=== PATIENT | male | born 1980 | race Hispanic/Latino ===

== ENCOUNTER 2019-08-18 00:33 | Inpatient (IN) | payer OTHER ==
[2019-08-18] MEDS ORDERED: ALBUTEROL INHALER 90MCG/INH IH ONE (01:03)
[2019-08-18] MEDS ORDERED: CEFTRIAXONE SODIUM 1 GM ONE ×2 (02:46→08:55)
[2019-08-18] MEDS ORDERED: METHYLPREDNISOLONE SOD SUCC 125MG/2ML VIAL ONE (02:46)
[2019-08-18] MEDS ORDERED: AZITHROMYCIN 250 MG TABLET PO ONE (02:47)
[2019-08-18 03:21] LABS: BASOPHILS % (AUTO) 0.4 % (0.0-5.0); EOSINOPHILS % (AUTO) 4.1 % (0.0-8.0); HEMATOCRIT 41.8 % (42-54); LYMPHOCYTES % (AUTO) 20.2 % (21.0-51.0); MEAN CORPUSCULAR HEMOGLOBIN 29.9 pg (27.0-33.0); MEAN CORPUSCULAR HGB CONC 33.5 g/dL (32.0-36.0); MEAN CORPUSCULAR VOLUME 89.1 fL (79-99); NEUTROPHILS % (AUTO) 67.8 % (40.0-77.0); PLATELET COUNT (AUTO) 268 K/uL (130-400); RED BLOOD CELL COUNT(AUTO) 4.69 MIL/uL (4.50-6.20); RED CELL DISTRIBUTION WIDTH 13.1 % (11.0-15.5); WHITE BLOOD COUNT (AUTO) 14.1 K/uL (4.8-10.8)
[2019-08-18 03:28] LABS: RAPID GROUP A STREP NEGATIVE (NEGATIVE)
[2019-08-18 03:31] LABS: CREATININE 0.8 mg/dL (0.5-1.5)
[2019-08-18 03:34] LABS: ABG BASE EXCESS 0.5 mmol/L (-2.0-3.0); ABG HCO3 25.2 mmol/L (21.0-28.0); ABG OXYGEN SATURATION 97.5 % (95.0-99.0); ABG PCO2 41 mmHg (35-48)
[2019-08-18 03:35] LABS: ALBUMIN 3.8 g/dL (3.5-5.0); BILIRUBIN,TOTAL 0.5 mg/dL (0.2-1.0); TOTAL PROTEIN, SERUM 7.5 g/dL (6.0-8.3)
[2019-08-18] MEDS ORDERED: DOXYCYCLINE 100MG+NS 250ML IV SCH (05:15)
[2019-08-18] MEDS ORDERED: CEFTRIAXONE SODIUM 1 GM IVP SCH (05:15)
[2019-08-18] MEDS ORDERED: LACTULOSE 20 GM/30 ML UDCUP PO PRN (05:15)
[2019-08-18] MEDS ORDERED: ERGOCALCIFEROL (VITAMIN D2) 50,000 UNIT CAPSULE PO ONE (05:15)
[2019-08-18] MEDS ORDERED: ACETAMINOPHEN 325 MG TAB PO PRN ×2 (05:15)
[2019-08-18] MEDS ORDERED: ONDANSETRON HCL 4 MG/2 ML VIAL IV PRN (05:15)
[2019-08-18] MEDS ORDERED: HYDRALAZINE HCL 20 MG/ML VIAL IV PRN (05:15)
[2019-08-18] MEDS ORDERED: INSULIN HUMULIN R 100 UNIT/ML 3ML SQ SCH (07:30)
[2019-08-18 08:43] LABS: INR 0.91 (0.85-1.15); PARTIAL THROMBOPLASTIN TIME 30.1 SEC (26.3-35.5); PROTHROMBIN TIME 9.9 SEC (9.6-11.6)
[2019-08-18 08:44] LABS: CRP QUANTITATIVE 15.5 mg/L (0.00-9.0)
[2019-08-18] MEDS ORDERED: DOXYCYCLINE 100MG+NS 250ML 250 ML IV ONE (08:54)
[2019-08-18] MEDS ORDERED: METHYLPREDNISOLONE SOD SUCC 40MG/ML 1ML ONE ×3 (08:54→20:16)
[2019-08-18] MEDS ORDERED: ZINC SULFATE 220 CAPSULE ONE (08:55)
[2019-08-18] MEDS ORDERED: ASCORBIC ACID 500 MG TAB ONE (08:55)
[2019-08-18] MEDS ORDERED: ENOXAPARIN SODIUM 40 MG/0.4 ML SYRINGE SQ ONE (08:55)
[2019-08-18] MEDS ORDERED: ZINC SULFATE 220 CAPSULE PO SCH (09:00)
[2019-08-18] MEDS ORDERED: ASCORBIC ACID 500 MG TAB PO SCH (09:00)
[2019-08-18] MEDS ORDERED: METHYLPREDNISOLONE SOD SUCC 40MG/ML 1ML IVP SCH (09:00)
[2019-08-18] MEDS ORDERED: ENOXAPARIN SODIUM 40 MG/0.4 ML SYRINGE SQ SCH (09:00)
--- NOTE | 2019-08-18 15:59 | NUR ---
CHART REVIEWED, [facility] UPLOADED, NO CONTACT NUMBERS ON FACE SHEET. UNABLE TO CONTACT PATIENT VIA PHONE NOTED PATIENT- INCARCERATED, ALEXEY CORNEJO LAST WEEK, CONTINUED PROBLEMS THIS WEEK, FRANCOIS FRENCH, RE-TESTED CALL TO [facility] PLAN OF CARE Addendum: 08/18/19 at 1602 by MEGAN BANG RN CM Amended: Links added.
[2019-08-18] MEDS ORDERED: INSULIN HUMULIN R 100 UNIT/ML 3ML ONE (20:18)
[2019-08-19] MEDS ORDERED: METHYLPREDNISOLONE SOD SUCC 40MG/ML 1ML ONE ×2 (07:33→14:14)
[2019-08-19] MEDS ORDERED: DOXYCYCLINE HYCLATE 100 MG TABLET PO ONE (07:33)
[2019-08-19] MEDS ORDERED: ASCORBIC ACID 500 MG TAB ONE (07:34)
[2019-08-19] MEDS ORDERED: ZINC SULFATE 220 CAPSULE ONE (07:34)
[2019-08-19] MEDS ORDERED: ENOXAPARIN SODIUM 40 MG/0.4 ML SYRINGE SQ ONE (07:34)
[2019-08-19 08:03] LABS: BASOPHILS % (AUTO) 0.1 % (0.0-5.0); HEMATOCRIT 40.4 % (42-54); LYMPHOCYTES % (AUTO) 11.2 % (21.0-51.0); MEAN CORPUSCULAR HEMOGLOBIN 29.7 pg (27.0-33.0); MEAN CORPUSCULAR HGB CONC 33.9 g/dL (32.0-36.0); MEAN CORPUSCULAR VOLUME 87.4 fL (79-99); MONOCYTES % (AUTO) 5.1 % (3.0-13.0); NEUTROPHILS % (AUTO) 82.9 % (40.0-77.0); PLATELET COUNT (AUTO) 291 K/uL (130-400); RED BLOOD CELL COUNT(AUTO) 4.62 MIL/uL (4.50-6.20); RED CELL DISTRIBUTION WIDTH 12.8 % (11.0-15.5); WHITE BLOOD COUNT (AUTO) 20.1 K/uL (4.8-10.8)
[2019-08-19 08:19] LABS: ALBUMIN 3.7 g/dL (3.5-5.0); BILIRUBIN,TOTAL 0.5 mg/dL (0.2-1.0); CREATININE 0.7 mg/dL (0.5-1.5); CRP QUANTITATIVE 13.2 mg/L (0.00-9.0); TOTAL PROTEIN, SERUM 7.3 g/dL (6.0-8.3)
[2019-08-19] MEDS ORDERED: ACETAMINOPHEN 325 MG TAB ONE (08:43)
[2019-08-19] MEDS ORDERED: ENOXAPARIN SODIUM 40 MG/0.4 ML SYRINGE SQ SCH (09:00)
[2019-08-19] MEDS ORDERED: ALBU18HF7 IH (11:49)
[2019-08-19] MEDS ORDERED: PRED20TA3 PO (11:49)
[2019-08-19] MEDS ORDERED: AZIT500T PO (11:49)
[2019-08-19] MEDS ORDERED: INSULIN HUMULIN R 100 UNIT/ML 3ML ONE (12:02)
--- NOTE | 2019-08-19 15:58 | NUR ---
CALLED IN RX DUE TO RX SENT ELECTRONICALLY BUT NO PERFERRED PHARMACY SET UP , CALLED [facility] SPOKE TO [facility] AND CALLED IT IN NEW RX FOR AZITHROMAZ, ALBUTEROL AND PREDNISONE.
== END 2019-08-19 15:35 | disposition home or self-care (01) | DRG 203 ==
LOC: EDH 00:33 → EEVIPCON 00:34 → EDHIP 00:34
PROVIDERS: ADMIT Hospitalist; ATTEND Hospitalist
DX: J45.901 Unspecified asthma with (acute) exacerbation (principal); J20.8 Acute bronchitis due to other specified organisms; E11.9 Type 2 diabetes mellitus without complications; I10 Essential (primary) hypertension; Z20.828 Contact with and (suspected) exposure to other viral communicable diseases
CPT/HCPCS: 0099U; 36415; 36600; 71045; 80053; 82728; 82803; 82948; 83036; 83615; 85025; 85378; 85610; 85730; 86140; 87040; 87071; 87205; 87804; 87880; 93005; 94644; 94645; G0378; J0696; J1650; J1815; J2920; J2930; J3490; U0003

== ENCOUNTER 2019-09-07 22:54 | Emergency (ER) | payer OTHER ==
[~2019-09-07 22:54] MED LIST: ALBU18HF7 IH; AZIT500T PO; PRED20TA3 PO
[2019-09-07] MEDS ORDERED: ALBUTEROL SULFATE 0.083% 2.5 MG/3 ML INH IH ONE ×2 (23:22→23:41)
[2019-09-07] MEDS ORDERED: DiphenhydrAMINE HCL 50 MG/ML VIAL ONE (23:34)
[2019-09-07] MEDS ORDERED: METHYLPREDNISOLONE SOD SUCC 125MG/2ML VIAL ONE (23:34)
[2019-09-07 23:42] LABS: BASOPHILS % (AUTO) 0.5 % (0.0-5.0); HEMATOCRIT 41.9 % (42-54); LYMPHOCYTES % (AUTO) 31.1 % (21.0-51.0); MEAN CORPUSCULAR HEMOGLOBIN 30.2 pg (27.0-33.0); MEAN CORPUSCULAR HGB CONC 33.9 g/dL (32.0-36.0); MEAN CORPUSCULAR VOLUME 89.1 fL (79-99); MONOCYTES % (AUTO) 5.6 % (3.0-13.0); NEUTROPHILS % (AUTO) 51.3 % (40.0-77.0); PLATELET COUNT (AUTO) 241 K/uL (130-400); RED CELL DISTRIBUTION WIDTH 13.2 % (11.0-15.5)
[2019-09-07 23:58] LABS: INR 0.91 (0.85-1.15); PARTIAL THROMBOPLASTIN TIME 28.2 SEC (26.3-35.5); PROTHROMBIN TIME 9.9 SEC (9.6-11.6)
[2019-09-08 00:06] LABS: CREATININE 0.9 mg/dL (0.5-1.5); POTASSIUM 3.5 mmol/L (3.5-5.1)
[2019-09-08 00:11] LABS: ALBUMIN 3.8 g/dL (3.5-5.0); BILIRUBIN,TOTAL 0.3 mg/dL (0.2-1.0); TOTAL PROTEIN, SERUM 7.5 g/dL (6.0-8.3)
[2019-09-08] MEDS ORDERED: PREDNISONE 20 MG TABLET ONE (00:18)
[2019-09-08] MEDS ORDERED: AZITHROMYCIN 250 MG TABLET PO ONE (00:19)
[2019-09-08] MEDS ORDERED: IPRATROPIUM/ALBUTEROL SULFATE 3 ML SOLUTION IH ONE (01:09)
== END 2019-09-08 03:15 | disposition home or self-care (01) ==
LOC: EDH 22:54
DX: J45.901 Unspecified asthma with (acute) exacerbation (principal)
CPT/HCPCS: 36415; 71045; 80053; 84484; 85025; 85610; 85730; 93005; 94640 ×3; 96374; 96375; 99285; J1200; J2930

== ENCOUNTER 2019-10-04 23:52 | Emergency (ER) | payer OTHER ==
[2019-10-05] MEDS ORDERED: ALBUTEROL SULFATE 0.083% 2.5 MG/3 ML INH IH ONE ×4 (00:09→00:53)
[2019-10-05] MEDS ORDERED: METHYLPREDNISOLONE SOD SUCC 125MG/2ML VIAL ONE (00:44)
[2019-10-05 01:22] LABS: BASOPHILS % (AUTO) 0.7 % (0.0-5.0); EOSINOPHILS % (AUTO) 9.9 % (0.0-8.0); HEMATOCRIT 43.9 % (42-54); LYMPHOCYTES % (AUTO) 44.7 % (21.0-51.0); MEAN CORPUSCULAR HEMOGLOBIN 30.2 pg (27.0-33.0); MEAN CORPUSCULAR HGB CONC 33.7 g/dL (32.0-36.0); MEAN CORPUSCULAR VOLUME 89.6 fL (79-99); NEUTROPHILS % (AUTO) 37.5 % (40.0-77.0); PLATELET COUNT (AUTO) 242 K/uL (130-400); WHITE BLOOD COUNT (AUTO) 11.1 K/uL (4.8-10.8)
[2019-10-05 01:40] LABS: CREATININE 0.9 mg/dL (0.5-1.5); POTASSIUM 3.7 mmol/L (3.5-5.1)
== END 2019-10-05 03:02 | disposition home or self-care (01) ==
LOC: EDH 23:52
DX: J45.901 Unspecified asthma with (acute) exacerbation (principal)
CPT/HCPCS: 36415; 71045; 80048; 85025; 94640; 96374; 99291; J2930

== ENCOUNTER 2020-12-26 13:25 | Emergency (ER) | payer OTHER ==
[~2020-12-26] VITALS: Ht 167.6 cm; Wt 83.9 kg
[2020-12-26 14:43] VITALS: BP 147/96
[2020-12-26] MEDS ORDERED: ACETAMINOPHEN 500 MG TABLET PO ONE (15:00)
[2020-12-26] MEDS ORDERED: IBUPROFEN 600 MG TABLET PO ONE (15:00)
[2020-12-26] MEDS ORDERED: ACETAMINOPHEN 500 MG TABLET ONE (15:14)
[2020-12-26] MEDS ORDERED: IBUPROFEN 600 MG TABLET ONE (15:14)
== END 2020-12-26 16:10 | disposition home or self-care (01) ==
LOC: EDH 13:25
DX: R06.00 Dyspnea, unspecified (principal); Z77.098 Contact with and (suspected) exposure to other hazardous, chiefly nonmedicinal, chemicals; M25.532 Pain in left wrist; I10 Essential (primary) hypertension; E11.9 Type 2 diabetes mellitus without complications; J45.909 Unspecified asthma, uncomplicated; Z79.1 Long term (current) use of non-steroidal anti-inflammatories (NSAID); Z79.52 Long term (current) use of systemic steroids; Z79.899 Other long term (current) drug therapy
CPT/HCPCS: 73130